=== PATIENT | male | born 1985 | race African-American/Black ===

== ENCOUNTER 2024-03-28 12:45 | Emergency (ER) | payer SELFPAY ==
[~2024-03-28] VITALS: Ht 175.3 cm; Wt 75.0 kg
[2024-03-28 12:47] VITALS: O2SAT 99
[2024-03-28 12:52] VITALS: BP 126/61; PULSE 87; RESP 18; TEMP 98.4; O2SAT 100
[2024-03-28 13:39] LABS: CLARITY URINE CLEAR (CLEAR); COLOR URINE YELLOW (YELLOW); GLUCOSE URINE NEGATIVE (NEGATIVE); KETONES URINE NEGATIVE (NEGATIVE); LEUKOCYTE ESTERASE URINE NEGATIVE (NEGATIVE); NITRITE URINE NEGATIVE (NEGATIVE); OCCULT BLOOD URINE NEGATIVE (NEGATIVE); PH URINE 6.5 (4.5-8.0); PROTEIN URINE NEGATIVE (NEGATIVE); SPECIFIC GRAVITY URINE 1.016 (1.005-1.030); UROBILINOGEN URINE 0.2 E.U./dL (0.2-1.0)
== END 2024-03-28 14:15 | disposition home or self-care (01) ==
LOC: EDBD 12:45 → ER 12:45
DX: R68.89 Other general symptoms and signs (principal); R82.90 Unspecified abnormal findings in urine
CPT/HCPCS: 81003; 99283; Z7610 ×3